=== PATIENT | female | born 1955 | race Caucasian/White ===

== ENCOUNTER 2018-04-19 09:13 | Emergency (ER) | payer MEDICAID ==
[2018-04-19 09:13] VITALS: BMI 23.6
[2018-04-19] MEDS ORDERED: Benzocaine/Menthol (Cepacol) Lozenge MT STA (10:00)
--- NOTE | 2018-04-19 10:30 | ED PDOC ---
Arrival/HPI - General Chief Complaint: Flu-like Symptoms Time Seen by Provider: 04/19/18 09:53 - History of Present Illness Narrative History of Present Illness (Text): 04/19/18 10:32 62 y/o female with no significant PMH presents to the ED c/o flu-like symptoms x 2 days. Symptoms include generalized myalgias, chills, fever, headache, fatigue, cough, and sore throat. Tolerating PO. Taking sudafed for symptoms with some relief, states she feels better today than yesterday. Denies flu shot. No sick contacts or recent travel. Denies neck pain/stiffness, visual changes, dizziness, nausea, vomiting, chest pain, SOB, abdominal pain, diarrhea, numbness, weakness, paresthesias, or any other associated symptoms. Past Medical History - Provider Review Nursing Documentation Reviewed: Yes - Infectious Disease Hx of Infectious Diseases: None - Tetanus Immunization Tetanus Immunization: Unknown - Cardiac Hx Cardiac Disorders: No - Pulmonary Hx Respiratory Disorders: No - Neurological Hx Neurological Disorder: No - HEENT Hx HEENT Disorder: No - Renal Hx Renal Disorder: No - Endocrine/Metabolic Hx Endocrine Disorders: No - Hematological/Oncological Hx Blood Disorders: No - Integumentary Hx Dermatological Disorder: No - Musculoskeletal/Rheumatological Hx Musculoskeletal Disorders: Yes Hx Arthritis: Yes Hx Back Pain: Yes - Gastrointestinal Hx Gastrointestinal Disorders: No - Genitourinary/Gynecological Hx Genitourinary Disorders: No - Psychiatric Hx Psychophysiologic Disorder: No Hx Substance Use: No - Anesthesia Hx Anesthesia Reactions: No Hx Malignant Hyperthermia: No - Suicidal Assessment Feels Threatened In Home Enviroment: No Family/Social History - Physician Review Nursing Documentation Reviewed: Yes Family/Social History: No Known Family HX Smoking Status: Current Some Days Smoker Hx Alcohol Use: Yes (RARE) Hx Substance Use: No Allergies/Home Meds Allergies/Adverse Reactions: Allergies No Known Allergies Allergy (Verified 04/19/18 09:44) Review of Systems - Review of Systems Constitutional: Fevers (and chills) Eyes: Normal. absent: Vision Changes, Photophobia ENT: Sore Throat, Rhinorrhea, Sinus Congestion Respiratory: Normal. absent: SOB, Cough Cardiovascular: Normal. absent: Chest Pain, Palpitations Gastrointestinal: Normal. absent: Abdominal Pain, Nausea, Vomiting Genitourinary Female: Normal. absent: Dysuria, Frequency Musculoskeletal: Myalgias. absent: Back Pain, Neck Pain Skin: Normal. absent: Rash Neurological: Headache. absent: Dizziness, Focal Weakness, Speech Changes, Disequilibrium Endocrine: Normal Hemo/Lymphatic: Normal Psychiatric: Normal Physical Exam Vital Signs Reviewed: Yes Vital Signs Temp Pulse Resp BP Pulse Ox 04/19/18 09:45 99.6 F 94 H 16 147/74 96 Temperature: Afebrile Blood Pressure: Normal Pulse: Regular Respiratory Rate: Normal Appearance: Positive for: Well-Appearing, Non-Toxic, Comfortable Pain Distress: None Mental Status: Positive for: Alert and Oriented X 3 - Systems Exam Head: Present: Atraumatic, Normocephalic Pupils: Present: PERRL Extroacular Muscles: Present: EOMI Conjunctiva: Present: Normal Mouth: Present: Moist Mucous Membranes Neck: Present: Normal Range of Motion. No: Meningeal Signs Respiratory/Chest: Present: Clear to Auscultation, Good Air Exchange. No: Respiratory Distress, Accessory Muscle Use Cardiovascular: Present: Regular Rate and Rhythm, Normal S1, S2. No: Murmurs Abdomen: No: Tenderness, Distention, Peritoneal Signs Back: Present: Normal Inspection. No: CVA Tenderness, Midline Tenderness, Paraspinal Tenderness Upper Extremity: Present: Normal Inspection, Normal ROM, NORMAL PULSES, Neurovascularly Intact, Capillary Refill < 2s. No: Cyanosis, Edema, Temperature Abnormalties Lower Extremity: Present: Normal Inspection, NORMAL PULSES, Normal ROM, Neurovascularly Intact, Capillary Refill < 2 s. No: Edema, CALF TENDERNESS, Temperature Abnormalties Neurological: Present: GCS=15, CN II-XII Intact, Speech Normal, Motor Func Grossly Intact, Normal Sensory Function, Gait Normal Skin: Present: Warm, Dry, Normal Color. No: Rashes Lymphatic: No: Cervical Adenopathy Psychiatric: Present: Alert, Oriented x 3, Normal Insight, Normal Concentration, Normal Affect, Normal Mood Medical Decision Making ED Course and Treatment: 04/19/18 10:27 Initial Plan: * Rapid Flu * Rapid Strep * CXR * Tylenol * Cepacol Rapid strep negative Rapid flu POSITIVE for influenza A CXR negative for infiltrate or active disease as read by me Patient reports improvement of symptoms with medication. Advised PMD followup. Diagnostic testing results and plan of care discussed with patient. Strict instructions given regarding prescription use, importance of followup, and signs/symptoms to return to ER including SOB, chest pain, neck stiffness, or any other new/worsening symptoms. Pt verbalized understanding of discussion. Patient is A&Ox3, ambulating with steady gait, with vital signs stable for discharge. 15:15 Official Xray read by radiology as possible lung nodule, recommends nonemergent followup CT. Read was performed after patient was discharged from emergency department. Spoke with patient on the phone, updated her of results, advised to followup with PMD and to call medical records if she would like a copy of her results. - Lab Interpretations Lab Results: Lab Results 04/19/18 10:25: Influenza Typ A,B (EIA) Pos for influenza a H, Grp A Beta Strep Ag Negative I have reviewed the lab results: Yes - RAD Interpretation Radiology Orders: 04/19/18 09:59 CXR (PA/LAT) [CHEST TWO VIEWS (PA/LAT)] [RAD] Stat - Medication Orders Current Medication Orders: Discontinued Medications Acetaminophen (Tylenol 325mg Tab) 650 mg PO STAT STA Stop: 04/19/18 10:01 Benzocaine/Menthol (Cepacol Sore Throat) 1 jeevan MT STAT STA Stop: 04/19/18 10:01 Disposition/Present on Arrival - Present on Arrival Any Indicators Present on Arrival: No History of DVT/PE: No History of Uncontrolled Diabetes: No Urinary Catheter: No History of Decub. Ulcer: No History Surgical Site Infection Following: None - Disposition Have Diagnosis and Disposition been Completed?: Yes Diagnosis: Influenza A Disposition: HOME/ ROUTINE Disposition Time: 12:45 Condition: GOOD Discharge Instructions (ExitCare): Flu, Adult (DC) Additional Instructions: Tamiflu every 12 hours for 5 days, 9 more doses Ibuprofen every 6 hours for fever Tylenol every 4 hours for fever Followup with primary doctor within 2 days Return to ER with any new/worsening symptoms Prescriptions: Oseltamivir Cap [Tamiflu] 75 mg PO Q12 #9 cap Referrals: Annita Delarosa MD [Primary Care Provider] - Follow up with primary Forms: [facility] ([place]), WORK NOTE
[2018-04-19 11:04] LABS: INFLUENZA A B POS FOR INFLUENZA A (NEGATIVE)
[2018-04-19 12:54] VITALS: BP 132/71; PULSE 76; RESP 18; TEMP 98.4; O2SAT 99
--- NOTE | 2018-04-19 15:04 | RAD ---
Date of service: 04/19/2018 HISTORY: Cough and fever. COMPARISON: No prior. TECHNIQUE: Chest PA and lateral FINDINGS: LUNGS: No active pulmonary disease. There is a small triangular shaped nodular density in the right lateral lower lung field located between the right posterior 8th and 9th ribs that may represent confluence of shadow artifact however small nodule not excluded. Follow-up nonemergent CT scan of the chest could be for further evaluation. PLEURA: No significant pleural effusion identified. No pneumothorax apparent. CARDIOVASCULAR: No aortic atherosclerotic calcification present. Normal cardiac size. No pulmonary vascular congestion. OSSEOUS STRUCTURES: Mild multilevel degenerative spondylosis of the thoracic spine.. VISUALIZED UPPER ABDOMEN: Normal. OTHER FINDINGS: None. IMPRESSION: No active disease. There is a small triangular shaped nodular density in the right lateral lower lung field located between the right posterior 8th and 9th ribs that may represent confluence of shadow artifact however small nodule not excluded. Follow-up nonemergent CT scan of the chest could be for further evaluation.
== END 2018-04-19 13:01 | disposition home or self-care (01) ==
LOC: ED 09:13
DX: J10.1 Influenza due to other identified influenza virus with other respiratory manifestations (principal)

== ENCOUNTER 2018-05-19 13:29 | Outpatient (CLI) | payer MEDICAID | END 2018-05-19 13:30 | disposition home or self-care (01) | LOC: RAD 13:29 ==

== ENCOUNTER 2018-06-10 07:33 | Outpatient (CLI) | payer MEDICAID | END 2018-06-10 07:34 | disposition home or self-care (01) | LOC: RAD 07:33 ==